=== PATIENT | male | born 1980 | race Caucasian/White ===

== ENCOUNTER 2018-01-20 16:12 | Emergency (ER) | payer OTHER ==
[2018-01-20 16:33] VITALS: RESP 18
--- NOTE | 2018-01-20 16:59 | ED ---
General Adult HPI - General Chief complaint: Urogenital Stated complaint: Male Source: patient Mode of arrival: ambulatory Limitations: no limitations - History of Present Illness Initial comments: Dictation was produced using [employer] dictation software. please excuse any grammatical, word or spelling errors. Chief Complaint: 37-year-old male presents with hematuria. History of Present Illness: Patient 37-year-old male presents with hematuria times one day. He was at home when he started noticing he was urinating blood clots. She did have sexual activity with his significant other today and there was some blood in the semen as well. Patient denies any dysuria. Denies any suprapubic tenderness. Patient denies any pain with bowel movements as well. Patient does not for nausea. No vomiting. Denies any flank pain or CVA tenderness. Patient denies suspicion of sexual transmitted disease. The ROS documented in this emergency department record has been reviewed and confirmed by me. Those systems with pertinent positive or negative responses have been documented in the HPI. All other systems are other negative and/or noncontributory. - Related Data Home Medications Medication Instructions Recorded Confirmed Fluticasone Nasal [place] [Flonase 1 spr EA NOSTRIL DAILY PRN 01/20/18 01/20/18 Nasal [place]] Allergies Allergy/AdvReac Type Severity Reaction Status Date / Time No Known Allergies Allergy Verified 01/20/18 17:30 Review of Systems ROS Statement: Those systems with pertinent positive or pertinent negative responses have been documented in the HPI. ROS Other: All systems not noted in ROS Statement are negative. Past Medical History Past Medical History: No Reported History History of Any Multi-Drug Resistant Organisms: None Reported Past Surgical History: No Surgical Hx Reported Past Psychological History: No Psychological Hx Reported Smoking Status: Current every day smoker Past Alcohol Use History: Occasional Past Drug Use History: None Reported General Exam - General Exam Comments Initial Comments: PHYSICAL EXAM: General Impression: Alert and oriented x3, not in acute distress HEENT: Normocephalic atraumatic, extra-ocular movements intact, pupils equal and reactive to light bilaterally, mucous membranes moist. Cardiovascular: Heart regular rate and rhythm, S1&S2 audible, no murmurs, rubs or gallops Chest: Lungs clear to auscultation bilaterally, no rhonchi, no wheeze, no rales Abdomen: Bowel sounds present, abdomen soft, non-tender, non-distended, no organomegaly Musculoskeletal: Pulses present and equal in all extremities, no peripheral edema Motor: Power 5/5 bilaterally, no focal deficits noted Neurological: CN II-XII grossly intact, no focal motor or sensory deficits noted Skin: Intact with no visualized rashes Psych: Normal affect and mood : Testicles are symmetrical in size. No palpable nodes to the testicles. There is a small defect noted in the right inguinal region that's increased Valsalva. Limitations: no limitations Course Vital Signs 01/20/18 16:30 Temperature 98.4 F Pulse Rate 82 Respiratory 18 Rate Blood Pressure 146/82 O2 Sat by Pulse 100 Oximetry Medical Decision Making - Medical Decision Making ED course: 37-year-old maleinfant past medical history presents with chief complaint of hematuria times one day. States he was urinating blood clots today. Vital signs upon arrival are within acceptable limits. Patient denies any symptoms. He is having asymptomatic hematuria. Patient urinating blood clots which would suggest bleeding arising from the bladder.Laboratory evaluation obtained. CBC unremarkable. Coag panel unremarkable. Metabolic panel is negative. Renal markers are fine. Urinalysis shows greater than 182 red blood cells and greater than 182 white blood cells. There is 1+ protein. Trace ketones and large amount of blood. No clinical suspicion of glomerulonephritis with the at this time. Patient had bladder scan. Post void residual 27. Discussed with patient that we would like him to follow up with urology for possible cystoscopy. At this point no clear indication for antibiotics. Patient given referral to outpatient urologist for further evaluation. Patient is understandable agreeable to plan. - Lab Data Result diagrams: 01/20/18 17:00 01/20/18 17:00 Lab Results 01/20/18 01/20/18 01/20/18 Range/Units 17:00 17:00 17:00 WBC 8.8 (3.8-10.6) k/uL RBC 4.51 (4.30-5.90) m/uL Hgb 14.8 (13.0-17.5) gm/dL Hct 44.7 (39.0-53.0) % MCV 99.0 (80.0-100.0) fL MCH 32.8 (25.0-35.0) pg MCHC 33.2 (31.0-37.0) g/dL RDW 13.5 (11.5-15.5) % Plt Count 202 (150-450) k/uL Neutrophils % 53 % Lymphocytes % 33 % Monocytes % 8 % Eosinophils % 3 % Basophils % 1 % Neutrophils # 4.7 (1.3-7.7) k/uL Lymphocytes # 2.9 (1.0-4.8) k/uL Monocytes # 0.7 (0-1.0) k/uL Eosinophils # 0.3 (0-0.7) k/uL Basophils # 0.1 (0-0.2) k/uL PT (9.0-12.0) sec INR (<1.2) APTT (22.0-30.0) sec Sodium 140 (137-145) mmol/L Potassium 4.1 (3.5-5.1) mmol/L Chloride 107 (98-107) mmol/L Carbon Dioxide 27 (22-30) mmol/L Anion Gap 6 mmol/L BUN 15 (9-20) mg/dL Creatinine 0.87 (0.66-1.25) mg/dL Est GFR (CKD-EPI)AfAm >90 (>60 ml/min/1.73 sqM) Est GFR (CKD-EPI)NonAf >90 (>60 ml/min/1.73 sqM) Glucose 105 H (74-99) mg/dL Calcium 9.9 (8.4-10.2) mg/dL Creatine Kinase 62 (55-170) U/L Urine Color Red Urine Appearance Turbid (Clear) Urine pH 6.0 (5.0-8.0) Ur Specific [place] 1.019 (1.001-1.035) Urine Protein 1+ H (Negative) Urine Glucose (UA) Negative (Negative) Urine Ketones Trace H (Negative) Urine Blood Large H (Negative) Urine Nitrite Negative (Negative) Urine Bilirubin Negative (Negative) Urine Urobilinogen <2.0 (<2.0) mg/dL Ur Leukocyte Esterase Small H (Negative) Urine RBC >182 H (0-5) /hpf Urine WBC >182 H (0-5) /hpf Urine WBC Clumps Many H (None) /hpf 01/20/18 Range/Units 17:00 WBC (3.8-10.6) k/uL RBC (4.30-5.90) m/uL Hgb (13.0-17.5) gm/dL Hct (39.0-53.0) % MCV (80.0-100.0) fL MCH (25.0-35.0) pg MCHC (31.0-37.0) g/dL RDW (11.5-15.5) % Plt Count (150-450) k/uL Neutrophils % % Lymphocytes % % Monocytes % % Eosinophils % % Basophils % % Neutrophils # (1.3-7.7) k/uL Lymphocytes # (1.0-4.8) k/uL Monocytes # (0-1.0) k/uL Eosinophils # (0-0.7) k/uL Basophils # (0-0.2) k/uL PT 10.4 (9.0-12.0) sec INR 1.1 (<1.2) APTT 23.8 (22.0-30.0) sec Sodium (137-145) mmol/L Potassium (3.5-5.1) mmol/L Chloride (98-107) mmol/L Carbon Dioxide (22-30) mmol/L Anion Gap mmol/L BUN (9-20) mg/dL Creatinine (0.66-1.25) mg/dL Est GFR (CKD-EPI)AfAm (>60 ml/min/1.73 sqM) Est GFR (CKD-EPI)NonAf (>60 ml/min/1.73 sqM) Glucose (74-99) mg/dL Calcium (8.4-10.2) mg/dL Creatine Kinase (55-170) U/L Urine Color Urine Appearance (Clear) Urine pH (5.0-8.0) Ur Specific [place] (1.001-1.035) Urine Protein (Negative) Urine Glucose (UA) (Negative) Urine Ketones (Negative) Urine Blood (Negative) Urine Nitrite (Negative) Urine Bilirubin (Negative) Urine Urobilinogen (<2.0) mg/dL Ur Leukocyte Esterase (Negative) Urine RBC (0-5) /hpf Urine WBC (0-5) /hpf Urine WBC Clumps (None) /hpf Disposition Clinical Impression: Hematuria Disposition: HOME SELF-CARE Condition: Good Instructions: Hematuria (ED) Is patient prescribed a controlled substance at d/c from ED?: No Referrals: None,Stated [Primary Care Provider] - 1-2 days Rodrigue Orozco MD [STAFF PHYSICIAN] - 1-2 days Time of Disposition: 18:42
[2018-01-20 17:35] LABS: Appearance,Urine Turbid (Clear); Bilirubin,Urine Negative (Negative); Blood,Urine Large (Negative); Color,Urine Red; Glucose,Urine (UA) Negative (Negative); Ketones,Urine Trace (Negative); Leukocyte Esterase,Urine Small (Negative); Nitrite,Urine Negative (Negative); Protein,Urine 1+ (Negative); RBC,Urine >182 /hpf (0-5); Specific Gravity,Urine 1.019 (1.001-1.035); Urobilinogen,Urine <2.0 mg/dL (<2.0); WBC,Urine >182 /hpf (0-5)
[2018-01-20 17:37] LABS: Anion Gap 6 mmol/L; Blood Urea Nitrogen 15 mg/dL (9-20); Calcium 9.9 mg/dL (8.4-10.2); Carbon Dioxide 27 mmol/L (22-30); Chloride 107 mmol/L (98-107); Creatine Kinase 62 U/L (55-170); Glucose 105 mg/dL (74-99); Potassium 4.1 mmol/L (3.5-5.1); Sodium 140 mmol/L (137-145)
[2018-01-20 17:46] LABS: Basophils # (A) 0.1 k/uL (0-0.2); Basophils % (A) 1 %; Eosinophils # (A) 0.3 k/uL (0-0.7); Eosinophils % (A) 3 %; HCT 44.7 % (39.0-53.0); HGB 14.8 gm/dL (13.0-17.5); Lymphocytes # (A) 2.9 k/uL (1.0-4.8); Lymphocytes % (A) 33 %; MCH 32.8 pg (25.0-35.0); MCHC 33.2 g/dL (31.0-37.0); Mean Platelet Volume 6.7; Monocytes # (A) 0.7 k/uL (0-1.0); Monocytes % (A) 8 %; Neutrophils # (A) 4.7 k/uL (1.3-7.7); Neutrophils % (A) 53 %; Platelet Count 202 k/uL (150-450); RBC 4.51 m/uL (4.30-5.90); RDW 13.5 % (11.5-15.5); WBC 8.8 k/uL (3.8-10.6)
[2018-01-20 17:57] LABS: INR 1.1 (<1.2); Partial Thromboplastin Time 23.8 sec (22.0-30.0); Prothrombin Time 10.4 sec (9.0-12.0)
[2018-01-20 18:56] VITALS: BP 135/84; PULSE 62; TEMP 98.1
[2018-01-22 13:26] LABS: C. trachomatis,PCR Negative (Neg,Equiv); Chlamydia trachomatis Source Urine
[2018-01-22 14:26] LABS: N. gonorrhoeae,PCR Negative (Neg,Equiv); Neisseria Source Urine
== END 2018-01-20 18:54 | disposition home or self-care (01) ==
LOC: EC 16:12
DX: R31.9 Hematuria, unspecified (principal); F17.200 Nicotine dependence, unspecified, uncomplicated
CPT/HCPCS: 36415; 80048; 81001; 82550; 85025; 85610; 85730; 87086; 87491; 87591; 99284

== ENCOUNTER → 2018-03-08 | Outpatient (CLI) | payer OTHER ==
--- NOTE | 2018-03-08 09:08 | CT ---
EXAMINATION TYPE: CT urogram wo/w con DATE OF EXAM: 03/08/2018 COMPARISON: None HISTORY: 37-year-old male Hematuria TECHNIQUE: Contiguous axial scanning of the abdomen and pelvis performed without and with IV Contrast , patient injected with 100 mL of Isovue 300. Delayed images through the kidneys and bladder were obt ained. Coronal/sagittal reconstructions performed. 3-D reconstructions generated on a dedicated [employer] workstation. CT DLP: 1188.4 mGycm Automated exposure control for dose reduction was used. FINDINGS: Heart normal size without pericardial effusion. Lung bases clear without pleural effusion. No focal liver lesion or biliary ductal dilatation. Portal venous system is patent. Gallbladder, adrenal glands, spleen, and pancreas appear within normal limits. Kidneys show no evidence for nephrolithiasis, suspicious mass, or hydronephrosis. There is an extrare nal pelvis on the left with symmetric uptake and excretion of contrast from both kidneys. No suspicious filling defect identified within the renal collecting systems. The distal third right u reter is nonopacified limiting its evaluation. Satisfactory opacification of the left ureter. Promine nt mixing artifacts in the bladder on the initial delayed scan which shows no abnormal filling defect on the second delayed scan. No dilated small bowel, free fluid, or free air. No mesenteric or retroperitoneal lymphadenopathy donavan ntified. Scattered mild stool burden. No pericolonic inflammatory change. No abnormal fluid collection in the pelvis or pelvic lymphadenopathy seen. Prostate gland prominent at 4.4 cm. Bones: No osseous destructive process. IMPRESSION: 1. A PORTION OF THE DISTAL THIRD RIGHT URETER REMAINS NONOPACIFIED LIMITING ITS ASSESSMENT. OTHERWISE , NO SUSPICIOUS RENAL MASS, NEPHROLITHIASIS, HYDRONEPHROSIS, OR SUSPICIOUS FILLING DEFECT WITHIN THE REMAINDER OF THE URETERS OR RENAL COLLECTING SYSTEMS. 2. PROSTATE GLAND MILDLY PROMINENT AT 4.4 CM.
== END ==
LOC: RADCTMAIN 07:03
PROVIDERS: ATTEND Urology
DX: R93.41 Abnormal radiologic findings on diagnostic imaging of renal pelvis, ureter, or bladder (principal); R31.0 Gross hematuria
CPT/HCPCS: 84153; 74178; 74400; 36415; Q9967